=== PATIENT | male | born 1955 ===

== ENCOUNTER 2017-08-18 11:37 | Emergency (ER) | payer BC ==
[2017-08-18 11:53] VITALS: BP 137/93
--- NOTE | 2017-08-18 12:19 | UC ---
Skin Complaint HPI - HPI Summary HPI Summary: Patient is 62 year old gentleman , with past medical history of asthma which is controlled presents today with for 2 problems: 1. Rash in left groin that he noticed to start 10 days ago and has progressed to the left scrotum. He describes it as itchy and red but no discharge, now has no more itchiness and does not hurt . notices some on the scrotum, Overall it's imrpoved. Denies any urinary symptoms 2. Right cheek redness and swelling for past 2 days. He was walking in kitchen and felt a sharp sting but could not see the insect, not sure if that was a bee or spider but most likely was a mosquito. He denies any vision problem . Denies any redness, pain, discharge from eye , no photophobia. Does not hurt to palpate. He is not sure if might have got a tick bite. Denies any fever, chills, cough chest pain or shortness of breath . Denies any abdominal pain , nausea or vomiting , diarrhea or constipation. No sick contacts . - History of Current Complaint Chief Complaint: UCEye Time Seen by Provider: 08/18/17 11:40 Stated Complaint: EYE COMPLAINT, RASH Pain Intensity: 3 - Allergy/Home Medications Allergies/Adverse Reactions: Allergies Allergy/AdvReac Type Severity Reaction Status Date / Time No Known Allergies Allergy Verified 08/18/17 11:53 Home Medications: Home Medications Beclomethasone 40 MCG MDI(NF) [Qvar 40 MCG MDI(NF)] 2 puff INH BID 08/18/17 [ History Confirmed 08/18/17] lamoTRIgine TAB(*) [LaMICtal TAB(*)] 150 mg PO BID 08/18/17 [History Confirmed 08/18/17] Review of Systems Constitutional: Negative Skin: Rash - left lower abdomen and groin , right upper arm and cheek Eyes: Negative ENT: Negative Respiratory: Negative Cardiovascular: Negative Gastrointestinal: Negative Genitourinary: Negative Motor: Negative Neurovascular: Negative Musculoskeletal: Negative Neurological: Negative Is Patient Immunocompromised?: No All Other Systems Reviewed And Are Negative: Yes PMH/Surg Hx/FS Hx/Imm Hx Previously Healthy: Yes Other Endocrine History: negative Other Cardiovascular History: negative Respiratory History: Asthma Other GI/ History: negative Other Neurological History: negative Other Psychological History: negative Other Cancer History: negative - Surgical History Surgical History: Yes Surgery Procedure, Year, and Place: bilat eye surg. - as an infant - Social History Alcohol Use: Occasionally Substance Use Type: None Smoking Status (MU): Never Smoked Tobacco Physical Exam Triage Information Reviewed: Yes Appearance: Well-Appearing, No Pain Distress Vital Signs: Initial Vital Signs Temp 97.5 F 08/18/17 11:44 Pulse 58 08/18/17 11:44 Resp 18 08/18/17 11:44 BP 137/93 08/18/17 11:44 Pulse Ox 100 08/18/17 11:44 Vital Signs Reviewed: Yes Eyes: Positive: Conjunctiva Clear, Other: - EOM and PERRLA intact, no conjunctival eythema, No discharge No discomfort on eye movements, convergence normal ENT: Positive: Pharynx normal, TMs normal, Other. Negative: Pharyngeal erythema , Nasal congestion, Nasal drainage, Tonsillar swelling, Tonsillar exudate, Trismus, Muffled voice, Hoarse voice Dental: Positive: Gross Decay/Caries @ Respiratory Exam: Normal Respiratory: Positive: Lungs clear, Normal breath sounds. Negative: Crackles, Rhonchi, Stridor, Wheezing Cardiovascular Exam: Normal Cardiovascular: Positive: RRR, No Murmur, Pulses Normal Abdomen Description: Positive: Nontender, No Organomegaly. Negative: Distended , Guarding Bowel Sounds: Positive: Present Male Genital Exam: Positive: Lesions - small maculopapular lesion noted on scrotum.. Negative: Scrotum Tenderness (R), Scrotum Tenderness (L) Neurological: Positive: Alert Psychological: Positive: Age Appropriate Behavior Skin: Positive: rashes - Left lower abdomen / upper thigh: midly erthematous, non blanching , non tender rash noted. Rt arm: papular lesions noted on right arm Right face erythema anoted on rigt cheek upto the eye. with swelling of the cheeck and some of the eyelid, no drainage noted. Course/Dx - Course Course Of Treatment: During his visit today, we discussed the findings and further plan. We discussed the need to return to ER if there is any worsening of his symptoms or if he develops any new vision changes. He lives [facility] and luis alberto follow up with his PCP when he returns back next week. He was give ceftriaxone 1 gm i/m today . I will prescribe bactrinm and 2.5 % hydrocortisone to the pharmacy . Dr. Hamilton was available and examined and discussed the same with the patient. Patient expressed understanding . - Differential Diagnoses - Skin Complaint Differential Diagnoses: Cellulitis, Contact Dermatitis - Diagnoses Provider Diagnoses: Cellulitis. Contact Dermatitis Discharge - Sign-Out/Discharge Documenting (check all that apply): Discharge/Admit/Transfer - Discharge Plan Condition: Stable Disposition: HOME Prescriptions: Hydrocortisone 2.5% CREAM(NF) 1 applic TOPICAL BID 10 Days #10 tube Sulfamethox/Trimethoprim DS* [Bactrim DS 800/160 TAB*] 1 tab PO BID 10 Days #20 tab Patient Education Materials: Contact Dermatitis (ED), Periorbital Cellulitis in Adults (ED) Referrals: No Primary Care Phys,NOPCP [Primary Care Provider] - Additional Instructions: Start taking your antibiotics by mouth . It has been prescribed to the pharmacy . Apply topical steroid cream to the right arm Follow up with your primary care doctor in 2 to 3 days. Return immediately to Emergency room if symptoms get worse of if there is any new symptoms of worsening of vision , fever, weakness. Patients blood pressure slightly high in Urgent care today , plan follow up with PCP for better control - Billing Disposition and Condition Condition: STABLE Disposition: HOME Images Head: 1 - facial cellulitis Front/Back of Body, Lg ([place]): 1 - abdominal rash 2 - papular rash
[2017-08-18] MEDS ORDERED: cefTRIAXone VIAL(*) 1,000 MG VIAL IM ONE (12:55)
[2017-08-18] MEDS ORDERED: Lidocaine 1% MPF* 2 ML VIAL ONE (12:58)
[2017-08-18] MEDS ORDERED: cefTRIAXone VIAL(*) 1,000 MG VIAL IM SCH (13:00)
== END 2017-08-18 13:30 | disposition home or self-care (01) ==
LOC: UCEAST 11:37
DX: L03.213 Periorbital cellulitis (principal); L25.9 Unspecified contact dermatitis, unspecified cause; J45.909 Unspecified asthma, uncomplicated
CPT/HCPCS: 96372; 99202; G0463; J0696